=== PATIENT | female | born 1990 | race Caucasian/White ===

== ENCOUNTER 2017-03-18 18:53 | Emergency (ER) | payer OTHER ==
--- NOTE | 2017-03-18 19:59 | ED NURSING NOTES ---
Clinical Report - Nurses [facility] [address] [place] [address] 03/18/2017 18:54 [id number] Triage time 19:Mar 18 2017. Acuity: LEVEL 3. Chief Complaint: RIGHT LOWER EXTREMITY PAIN, SWELLING and REDNESS. 19:28 03/18/17. SEPSIS SCREEN: Sepsis Screen: negative. Infection suspected/documented. Heart rate greater than 90. TEE COMA SCORE: Tee Coma Scale: 15- eyes open spontaneously (4); best verbal response- oriented x 4 (5); best motor response- obeys commands (6). --19:28 Raya Landers 19:22 03/18/17. BP: 110/70. HR: 114. RR: 20. O2 saturation: 98% on room air. Temp: 99 F (oral). Pain level now: 05/12. --19:28 Raya Landers. Weight: 68 kg stated. Height/Length: 66 inches Per Patient. BMI: 24.2. --19:25 Raya Landers. Medications None. --19:24 Raya Landers. Medication/allergy information source: the patient. --19:28 Raya Landers. Allergies No Known Drug Allergy. --19:24 Raya Landers. History Arrived by private vehicle. Historian: patient. Accompanied by family. Primary physician (none). No injury occurred. This occurred yesterday. It is described as radiating to the right lower extremity and thigh. ( Patient reports bursitis in her right knee. She states her clinic was unable to drain it today. She received medication but is still in pain and reports worsening symptoms. She states to her knowledge the infection is in her "knee bones". She reports she had been given antibiotics and pain meds one month ago and is now not taking them.). PAST MEDICAL HX: Tetanus status: up-to-date. Immunizations: up-to-date. Last normal menstrual period now. SOCIAL HX: Never smoker. No alcohol use or drug use. No infectious disease exposure. ABUSE ASSESSMENT: No report of abuse. FALL RISK ASSESSMENT: Fall risk assessment completed. No fall risk identified. NUTRITIONAL RISK ASSESSMENT: The nutritional risk assessment revealed no deficiencies. FUNCTIONAL ASSESSMENT: Functional assessment: no impairments noted. LEARNING NEEDS ASSESSMENT: The learning needs assessment revealed no barriers. SKIN INTEGRITY ASSESSMENT: Skin integrity risk assessment completed. No skin integrity risk identified. --19:28 Raya Landers. PROBLEMS: Bursitis. --19:24 Raya Landers. ADDITIONAL SURGERIES: no known surgeries. Interventions ID band on patient. To treatment room. --19:28 Raya Landers. PHYSICAL ASSESSMENT Ambulatory to room. GENERAL / NEURO / PSYCH: Oriented X 4. Alert. Appears in no acute distress. EXTREMITIES: Extremity pulses are within normal limits. Right knee: tenderness, swelling and erythema. Limited ROM secondary to. SKIN: Skin is warm and dry. --19:35 Raya Landers. NURSING PROGRESS NOTES GENERAL / NEURO / PSYCH: Alert. Oriented X 4. RESPIRATORY: No respiratory distress. SKIN: Skin is warm and dry. ( Patient returned to waiting room, Patient stable at this time and informed of plan of care). --19:29 Raya Landers 19:38 03/18/17. Extremity elevated. Reassurance given. Two patient identifiers checked. Call light placed in reach. Side rails up x 1. Bed placed in lowest position. Brakes of bed on. Patient ready for evaluation- chart flagged and ED physician notified. --19:38 Raya Landers. DISPOSITION / DISCHARGE 20:10 03/18/17. Condition at departure: stable. The goals identified in the patient's plan of care were met. No learning barriers present. Discharge instructions provided and reviewed with the patient. Reviewed warnings (Do not drive while on sedative medications). Reviewed medication(s) side effects, precautions, dosing and course information. Prescription(s) given to the patient. Reviewed need for increased fluid intake. Patient and watch repair person verbalized understanding. Written instructions provided in [place] and [place]ian. ( Follow up with Orthopedic clinic in three days, contact information provided. Apply ice for twenty minutes at a time. Rest the join, elevate and reduce stress to the affected knee until better. Patient verbalize understanding and had no additional questions at this time.). The patient was discharged by the nurse practitioner. She was discharged home and accompanied by watch repair person. She left the Emergency Department ambulatory and via private vehicle. Iron Molder Helper driving. FALL RISK ASSESSMENT: Fall risk assessment completed. No fall risk identified. --00:59 Raya Landers 20:10 03/18/17. BP: 112/60. HR: 80. RR: 20. O2 saturation: 98% on room air. Pain level now: 05/12. --00:59 Raya Landers. Locked/Released at 03/19/2017 1:12 by Raya Landers,
--- NOTE | 2017-03-18 19:59 | ED CLINICAL REPORT ---
Clinical Report - Physicians/Mid Levels [facility] [address] [place] [address] 03/18/2017 18:54 Patient: JORY SMITH Time Seen: 19:45; initial patient contact, initial documentation, patient care assumed. Arrived- By private vehicle. Historian- patient. HISTORY OF PRESENT ILLNESS Chief Complaint: LOWER EXTREMITY PAIN and SWELLING. Severity is described as being severe. The quality is noted to be "pain". No radiation. Not relieved by anything- worsened by standing and walking. This started about 2 days ago and is still present and worsening. It was abrupt in onset and has been intermittent. Symptoms located in the area of the right knee. The patient has had mild redness. She has had new onset of localized moderate swelling of the right knee. No difficulty walking. No bladder dysfunction, bowel dysfunction, sensory loss or motor loss. Patient denies an injury. Similar symptoms previously: Once. ( started about 1 month ago, was redder and purple in color last time and swelling just as bad, but it came on much slower, was given abx and pain meds, also given a wrap but didn't wear it or use it). Recent medical care: The patient was seen recently in a clinic. ( went to clinic today, dx with knee bursitis, they refused to drain it, so came here). REVIEW OF SYSTEMS No chest pain, difficulty breathing or fever. All systems otherwise negative, except as recorded above. PAST HISTORY See nurses notes. ( PROBLEMS: Bursitis. --19:24 Raya Landers. ADDITIONAL SURGERIES: no known surgeries.). SOCIAL HISTORY Never smoker. No alcohol use or drug use. No recent travel. Is a local resident. FAMILY HISTORY Negative. ADDITIONAL NOTES The nursing notes have been reviewed with agreement regarding the chief complaint, HPI, ROS, PMH and patient medications and allergies. PHYSICAL EXAM Vital Signs: 03/18/2017 19:22 BP: 110/70. HR: 114. RR: 20. O2 saturation: 98%. Temp: 99 F. Pain level now: 8/10. Have been reviewed as abnormal and appear to be correct. Blood pressure normal. Tachycardic. Respiratory rate normal. Temperature normal. Oxygen saturation normal. Appearance: Alert. Oriented X3. No acute distress. Eyes: Pupils equal, round and reactive to light. Eyes normal inspection. Respiratory: No respiratory distress. Skin: Skin intact. Skin warm and dry. Normal skin color. Normal skin turgor. Extremities: Right knee: mild erythema and swelling and moderate tenderness located in the patella. Limited ROM secondary to pain (diminished flexion). Neurovascular intact distally. (warmth). No ligamentous laxity present. No joint effusion. No laceration, abrasion, ecchymosis, puncture wound or foreign body. No deformity. Lower extremities exhibit normal ROM. Lower extremity edema present. Extremities otherwise negative. Gait: Abnormal gait. Neuro: Oriented X 3. No motor deficit. No sensory deficit. PROGRESS AND PROCEDURES Course of Care: tx options discussing with doing knee arthrocentesis, explained to pt risk of draining it and septic knee, not comfortable draining it due to all the inflammation and possible infection, explained to pt that is probably why clinic didn't drain it either. Patient counseled in person regarding the patient's stable condition and diagnosis. Differential Diagnosis: Other possible considerations: septic joint, bursitis, cellulitis, fb, mrsa, abscess, knee effusion. Above considerations are based on history and physical exam. Differential diagnosis was discussed with patient. Disposition: Discharged home in good and unchanged condition (19:58). Condition: good and stable. CLINICAL IMPRESSION Right prepatellar bursitis with infection. INSTRUCTIONS Warnings: GENERAL WARNINGS: Return or contact your physician immediately if your condition worsens or changes unexpectedly, if not improving as expected, or if other problems arise. Specifically return if problem worsens. Prescription Medications: Cephalexin 500 mg: take 1 capsule orally every 6 hours for 10 days. No refill. Sherwood 5 mg / 325 mg tablets: take 1 orally every 6 hours as needed for pain. Dispense ten (10). No refill. Motrin 800 mg tablets: take 1 tablet orally every 8 hours as needed for pain. Dispense thirty (30). No refills. Substitution is permissible. Follow-up: Follow up with your doctor in about three days even if well. Call for an appointment. Summary of care provided to patient. Understanding of the discharge instructions verbalized by patient. Follow-up with: [facility], , [address], , [place], [address]; Lobo Antonio M.D., Ortho, , [address], , [place], [address]; Edward Mao M.D., Ortho, , [address], , [place], [address]; Samm Tate MD, Orthopedic Surgeon, , [address], , [place], [address]; Nader Morris MD, Orthopedic Surgeon, , [address] , [place], [address] Follow up in about three days as needed. Call for an appointment. Summary of care provided to patient. (Electronically signed by Nini Borjas A.R.N.P. 03/18/2017 22:00)
--- NOTE | 2017-03-18 19:59 | ED NURSING NOTES ---
Clinical Report - Nurses [facility] [address] [place] [address] 03/18/2017 18:54 [id number] TRI[facility] Triage time 19:Mar 18 2017. Acuity: LEVEL 3. Chief Complaint: RIGHT LOWER EXTREMITY PAIN, SWELLING and REDNESS. 19:28 03/18/17. SEPSIS SCREEN: Sepsis Screen: negative. Infection suspected/documented. Heart rate greater than 90. TEE COMA SCORE: Tee Coma Scale: 15- eyes open spontaneously (4); best verbal response- oriented x 4 (5); best motor response- obeys commands (6). --19:28 Raya Landers 19:22 03/18/17. BP: 110/70. HR: 114. RR: 20. O2 saturation: 98% on room air. Temp: 99 F (oral). Pain level now: 05/12. --19:28 Raya Landers. Weight: 68 kg stated. Height/Length: 66 inches Per Patient. BMI: 24.2. --19:25 Raya Landers. Medications None. --19:24 Raya Landers. Medication/allergy information source: the patient. --19:28 Raya Landers. Allergies No Known Drug Allergy. --19:24 Raya Landers. History Arrived by private vehicle. Historian: patient. Accompanied by family. Primary physician (none). No injury occurred. This occurred yesterday. It is described as radiating to the right lower extremity and thigh. ( Patient reports bursitis in her right knee. She states her clinic was unable to drain it today. She received medication but is still in pain and reports worsening symptoms. She states to her knowledge the infection is in her "knee bones". She reports she had been given antibiotics and pain meds one month ago and is now not taking them.). PAST MEDICAL HX: Tetanus status: up-to-date. Immunizations: up-to-date. Last normal menstrual period now. SOCIAL HX: Never smoker. No alcohol use or drug use. No infectious disease exposure. ABUSE ASSESSMENT: No report of abuse. FALL RISK ASSESSMENT: Fall risk assessment completed. No fall risk identified. NUTRITIONAL RISK ASSESSMENT: The nutritional risk assessment revealed no deficiencies. FUNCTIONAL ASSESSMENT: Functional assessment: no impairments noted. LEARNING NEEDS ASSESSMENT: The learning needs assessment revealed no barriers. SKIN INTEGRITY ASSESSMENT: Skin integrity risk assessment completed. No skin integrity risk identified. --19:28 Raya Landers. PROBLEMS: Bursitis. --19:24 Raya Landers. ADDITIONAL SURGERIES: no known surgeries. Interventions ID band on patient. To treatment room. --19:28 Raya Landers. PHYSICAL ASSESSMENT Ambulatory to room. GENERAL / NEURO / PSYCH: Oriented X 4. Alert. Appears in no acute distress. EXTREMITIES: Extremity pulses are within normal limits. Right knee: tenderness, swelling and erythema. Limited ROM secondary to. SKIN: Skin is warm and dry. --19:35 Raya Landers. NURSING PROGRESS NOTES GENERAL / NEURO / PSYCH: Alert. Oriented X 4. RESPIRATORY: No respiratory distress. SKIN: Skin is warm and dry. ( Patient returned to waiting room, Patient stable at this time and informed of plan of care). --19:29 Raya Landers 19:38 03/18/17. Extremity elevated. Reassurance given. Two patient identifiers checked. Call light placed in reach. Side rails up x 1. Bed placed in lowest position. Brakes of bed on. Patient ready for evaluation- chart flagged and ED physician notified. --19:38 Raya Landers. DISPOSITION / DISCHARGE 20:10 03/18/17. Condition at departure: stable. The goals identified in the patient's plan of care were met. No learning barriers present. Discharge instructions provided and reviewed with the patient. Reviewed warnings (Do not drive while on sedative medications). Reviewed medication(s) side effects, precautions, dosing and course information. Prescription(s) given to the patient. Reviewed need for increased fluid intake. Patient and marketing project manager verbalized understanding. Written instructions provided in [place] and Belgian. ( Follow up with Orthopedic clinic in three days, contact information provided. Apply ice for twenty minutes at a time. Rest the join, elevate and reduce stress to the affected knee until better. Patient verbalize understanding and had no additional questions at this time.). The patient was discharged by the nurse practitioner. She was discharged home and accompanied by marketing project manager. She left the Emergency Department ambulatory and via private vehicle. Rag Cutting Machine Operator driving. FALL RISK ASSESSMENT: Fall risk assessment completed. No fall risk identified. --00:59 Raya Landers 20:10 03/18/17. BP: 112/60. HR: 80. RR: 20. O2 saturation: 98% on room air. Pain level now: 05/12. --00:59 Raya Landers. Locked/Released at 03/19/2017 1:12 by Raya Landers,
--- NOTE | 2017-03-18 19:59 | ED CLINICAL REPORT ---
Clinical Report - Physicians/Mid Levels [facility] [address] [place] [address] 03/18/2017 18:54 Patient: JORY SMITH Time Seen: 19:45; initial patient contact, initial documentation, patient care assumed. Arrived- By private vehicle. Historian- patient. HISTORY OF PRESENT ILLNESS Chief Complaint: LOWER EXTREMITY PAIN and SWELLING. Severity is described as being severe. The quality is noted to be "pain". No radiation. Not relieved by anything- worsened by standing and walking. This started about 2 days ago and is still present and worsening. It was abrupt in onset and has been intermittent. Symptoms located in the area of the right knee. The patient has had mild redness. She has had new onset of localized moderate swelling of the right knee. No difficulty walking. No bladder dysfunction, bowel dysfunction, sensory loss or motor loss. Patient denies an injury. Similar symptoms previously: Once. ( started about 1 month ago, was redder and purple in color last time and swelling just as bad, but it came on much slower, was given abx and pain meds, also given a wrap but didn't wear it or use it). Recent medical care: The patient was seen recently in a clinic. ( went to clinic today, dx with knee bursitis, they refused to drain it, so came here). REVIEW OF SYSTEMS No chest pain, difficulty breathing or fever. All systems otherwise negative, except as recorded above. PAST HISTORY See nurses notes. ( PROBLEMS: Bursitis. --19:24 Raya Landers. ADDITIONAL SURGERIES: no known surgeries.). SOCIAL HISTORY Never smoker. No alcohol use or drug use. No recent travel. Is a local resident. FAMILY HISTORY Negative. ADDITIONAL NOTES The nursing notes have been reviewed with agreement regarding the chief complaint, HPI, ROS, PMH and patient medications and allergies. PHYSICAL EXAM Vital Signs: 03/18/2017 19:22 BP: 110/70. HR: 114. RR: 20. O2 saturation: 98%. Temp: 99 F. Pain level now: 8/10. Have been reviewed as abnormal and appear to be correct. Blood pressure normal. Tachycardic. Respiratory rate normal. Temperature normal. Oxygen saturation normal. Appearance: Alert. Oriented X3. No acute distress. Eyes: Pupils equal, round and reactive to light. Eyes normal inspection. Respiratory: No respiratory distress. Skin: Skin intact. Skin warm and dry. Normal skin color. Normal skin turgor. Extremities: Right knee: mild erythema and swelling and moderate tenderness located in the patella. Limited ROM secondary to pain (diminished flexion). Neurovascular intact distally. (warmth). No ligamentous laxity present. No joint effusion. No laceration, abrasion, ecchymosis, puncture wound or foreign body. No deformity. Lower extremities exhibit normal ROM. Lower extremity edema present. Extremities otherwise negative. Gait: Abnormal gait. Neuro: Oriented X 3. No motor deficit. No sensory deficit. PROGRESS AND PROCEDURES Course of Care: tx options discussing with doing knee arthrocentesis, explained to pt risk of draining it and septic knee, not comfortable draining it due to all the inflammation and possible infection, explained to pt that is probably why clinic didn't drain it either. Patient counseled in person regarding the patient's stable condition and diagnosis. Differential Diagnosis: Other possible considerations: septic joint, bursitis, cellulitis, fb, mrsa, abscess, knee effusion. Above considerations are based on history and physical exam. Differential diagnosis was discussed with patient. Disposition: Discharged home in good and unchanged condition (19:58). Condition: good and stable. CLINICAL IMPRESSION Right prepatellar bursitis with infection. INSTRUCTIONS Warnings: GENERAL WARNINGS: Return or contact your physician immediately if your condition worsens or changes unexpectedly, if not improving as expected, or if other problems arise. Specifically return if problem worsens. Prescription Medications: Cephalexin 500 mg: take 1 capsule orally every 6 hours for 10 days. No refill. Stover 5 mg / 325 mg tablets: take 1 orally every 6 hours as needed for pain. Dispense ten (10). No refill. Motrin 800 mg tablets: take 1 tablet orally every 8 hours as needed for pain. Dispense thirty (30). No refills. Substitution is permissible. Follow-up: Follow up with your doctor in about three days even if well. Call for an appointment. Summary of care provided to patient. Understanding of the discharge instructions verbalized by patient. Follow-up with: [facility], , [address], , [place], [address]; Lobo Antonio M.D., [facility], , [address], , [place], [address]; Edward Mao M.D., Ortho, , [address], , [place], [address]; Samm Tate MD, Orthopedic Surgeon, , [address], , [place], [address]; Nader Morris MD, Orthopedic Surgeon, , [address] , [place], [address] Follow up in about three days as needed. Call for an appointment. Summary of care provided to patient. (Electronically signed by Nini Borajs A.R.N.P. 03/18/2017 22:00)
--- NOTE | 2017-03-19 01:13 | ED DISCHARGE INSTRUCTIONS ---
Patient: JORY SMITH General Instructions [facility] VisitID: [id number] [address], [place] [address] 26y, F Registration Date/Time: 03/18/2017 Right prepatellar bursitis with infection. INSTRUCTIONS Warnings: GENERAL WARNINGS: Return or contact your physician immediately if your condition worsens or changes unexpectedly, if not improving as expected, or if other problems arise. Specifically return if problem worsens. Prescription Medications: Cephalexin 500 mg: take 1 capsule orally every 6 hours for 10 days. No refill. [place] 5 mg / 325 mg tablets: take 1 orally every 6 hours as needed for pain. Dispense ten (10). No refill. Motrin 800 mg tablets: take 1 tablet orally every 8 hours as needed for pain. Dispense thirty (30). No refills. Substitution is permissible. Follow-up: Follow up with your doctor in about three days even if well. Call for an appointment. Summary of care provided to patient. Understanding of the discharge instructions verbalized by patient. Follow-up with: [facility], , [address], , [place] [id number]; Lobo Antonio M.D., Ortho, , [address], , [place] [id number]; Edward Mao M.D., Ortho, , [address] , [place] [id number]; Samm Tate MD, Orthopedic Surgeon, , [id number], , [place], [address]; Nader Morris MD, Orthopedic Surgeon, , [address] [place] [address] Follow up in about three days as needed. Call for an appointment. Summary of care provided to patient. ADDITIONAL INFORMATION Bursitis The larger joints of the body are surrounded bybursa. These are small, flat fluid-filled sacs which help the gliding motion of the muscles and tendons over the joints. Bursitis is an inflammation of the bursa due to injury, overuse of the joint, or infection of the bursa itself. Symptoms include pain and tenderness over a joint that is made worse with movement. Bursitis is treated with an anti-inflammatory medicine and by resting the joint. More severe cases require injection of medicine directly into the bursa. Home Care: Apply an ice pack (ice cubes in a plastic bag, wrapped in a towel) over the injured area for 20 minutes every 1-2 hours the first day. Continue this 3-4 times a day until the pain and swelling improves. Rest the painful joint and protect it from movement. This will allow the inflammation to heal faster. You may take ibuprofen (Motrin, Advil) or naproxen (Aleve, Naprosyn) to treat pain and inflammation, unless another medicine was prescribed. If you can't take these medicines, acetaminophen (Tylenol) may help with the pain, but does not treat inflammation. [NOTE: If you have chronic liver or kidney disease or ever had a stomach ulcer or GI bleeding, talk with your doctor before using these medicines.] As your symptoms improve, begin gradual motion at the joint. Do not overuse the joint, which may cause the symptoms to flare up again. Follow Up With Your Doctor If Not Improving After Three Days Of Treatment. Get Prompt Medical Attention If Any Of The Following Occur: Redness over the painful area Increasing pain or swelling at the joint Fever of 100.4F (38C) or higher, or as directed by your healthcare provider Cephalexin Monohydrate Oral tablet What is this medicine? CEPHALEXIN (sef a LAYLA in) is a cephalosporin antibiotic. It is used to treat certain kinds of bacterial infections It will not work for colds, flu, or other viral infections. How should I use this medicine? Take this medicine by mouth with a full glass of water. Follow the directions on the prescription label. This medicine can be taken with or without food. Take your medicine at regular intervals. Do not take your medicine more often than directed. Take all of your medicine as directed even if you think you are better. Do not skip doses or stop your medicine early. Talk to your road equipment operator regarding the use of this medicine in children. While this drug may be prescribed for selected conditions, precautions do apply. What side effects may I notice from receiving this medicine? Side effects that you should report to your doctor or health physician locums urgent care as soon as possible: allergic reactions like skin rash, itching or hives, swelling of the face, lips, or tongue breathing problems pain or trouble passing urine redness, blistering, peeling or loosening of the skin, including inside the mouth severe or watery diarrhea unusually weak or tired yellowing of the eyes, skin Side effects that usually do not require medical attention (report to your doctor or health physician locums urgent care if they continue or are bothersome): gas or heartburn genital or anal irritation headache joint or muscle pain nausea, vomiting What may interact with this medicine? probenecid some other antibiotics What if I miss a dose? If you miss a dose, take it as soon as you can. If it is almost time for your next dose, take only that dose. Do not take double or extra doses. There should be at least 4 to 6 hours between doses. Where should I keep my medicine? Keep out of the reach of children. Store at room temperature between 59 and 86 degrees F (15 and 30 degrees C). Throw away any unused medicine after the expiration date. What should I tell my health care provider before I take this medicine? They need to know if you have any of these conditions: kidney disease stomach or intestine problems, especially colitis an unusual or allergic reaction to cephalexin, other cephalosporins, penicillins, other antibiotics, medicines, foods, dyes or preservatives or trying to get breast-feeding What should I watch for while using this medicine? Tell your doctor or health physician locums urgent care if your symptoms do not begin to improve in a few days. Do not treat diarrhea with over the counter products. Contact your doctor if you have diarrhea that lasts more than 2 days or if it is severe and watery. If you have diabetes, you may get a false-positive result for sugar in your urine. Check with your doctor or health physician locums urgent care. Hydrocodone Bitartrate, Acetaminophen Oral tablet What is this medicine? ACETAMINOPHEN; HYDROCODONE (a set a PAOLO louise fen; ladan droe KOE done) is a pain reliever. It is used to treat mild to moderate pain. How should I use this medicine? Take this medicine by mouth. Swallow it with a full glass of water. Follow the directions on the prescription label. If the medicine upsets your stomach, take the medicine with food or milk. Do not take more than you are told to take. Talk to your road equipment operator regarding the use of this medicine in children. This medicine is not approved for use in children. What side effects may I notice from receiving this medicine? Side effects that you should report to your doctor or health physician locums urgent care as soon as possible: allergic reactions like skin rash, itching or hives, swelling of the face, lips, or tongue breathing problems confusion feeling faint or lightheaded, falls stomach pain yellowing of the eyes or skin Side effects that usually do not require medical attention (report to your doctor or health physician locums urgent care if they continue or are bothersome): nausea, vomiting stomach upset What may interact with this medicine? alcohol antihistamines isoniazid medicines for depression, anxiety, or psychotic disturbances medicines for sleep muscle relaxants naltrexone narcotic medicines (opiates) for pain phenobarbital ritonavir tramadol What if I miss a dose? If you miss a dose, take it as soon as you can. If it is almost time for your next dose, take only that dose. Do not take double or extra doses. Where should I keep my medicine? Keep out of the reach of children. This medicine can be abused. Keep your medicine in a safe place to protect it from theft. Do not share this medicine with anyone. Selling or giving away this medicine is dangerous and against the law. Store at room temperature between 15 and 30 degrees C (59 and 86 degrees F). Protect from light. Keep container tightly closed. Throw away any unused medicine after the expiration date. Discard unused medicine and used packaging carefully. Pets and children can be harmed if they find used or lost packages. What should I tell my health care provider before I take this medicine? They need to know if you have any of these conditions: brain tumor Crohn's disease, inflammatory bowel disease, or ulcerative colitis drink more than 3 alcohol-containing drinks per day drug abuse or addiction head injury heart or circulation problems kidney disease or problems going to the bathroom liver disease lung disease, asthma, or breathing problems an unusual or allergic reaction to acetaminophen, hydrocodone, other opioid analgesics, other medicines, foods, dyes, or preservatives or trying to get breast-feeding What should I watch for while using this medicine? Tell your doctor or health physician locums urgent care if your pain does not go away, if it gets worse, or if you have new or a different type of pain. You may develop tolerance to the medicine. Tolerance means that you will need a higher dose of the medicine for pain relief. Tolerance is normal and is expected if you take the medicine for a long time. Do not suddenly stop taking your medicine because you may develop a severe reaction. Your body becomes used to the medicine. This does NOT mean you are addicted. Addiction is a behavior related to getting and using a drug for a non-medical reason. If you have pain, you have a medical reason to take pain medicine. Your doctor will tell you how much medicine to take. If your doctor wants you to stop the medicine, the dose will be slowly lowered over time to avoid any side effects. You may get drowsy or dizzy when you first start taking the medicine or change doses. Do not drive, use machinery, or do anything that may be dangerous until you know how the medicine affects you. Stand or sit up slowly. There are different types of narcotic medicines (opiates) for pain. If you take more than one type at the same time, you may have more side effects. Give your health care provider a list of all medicines you use. Your doctor will tell you how much medicine to take. Do not take more medicine than directed. Call emergency for help if you have problems breathing. The medicine will cause constipation. Try to have a bowel movement at least every 2 to 3 days. If you do not have a bowel movement for 3 days, call your doctor or health physician locums urgent care. Too much acetaminophen can be very dangerous. Do not take Tylenol (acetaminophen) or medicines that contain acetaminophen with this medicine. Many non-prescription medicines contain acetaminophen. Always read the labels carefully. Ibuprofen Oral tablet What is this medicine? IBUPROFEN (eye BYOO proe fen) is a non-steroidal anti-inflammatory drug (NSAID). It is used for dental pain, fever, headaches or migraines, osteoarthritis, rheumatoid arthritis, or painful monthly periods. It can also relieve minor aches and pains caused by a cold, flu, or sore throat. How should I use this medicine? Take this medicine by mouth with a glass of water. Follow the directions on the prescription label. Take this medicine with food if your stomach gets upset. Try to not lie down for at least 10 minutes after you take the medicine. Take your medicine at regular intervals. Do not take your medicine more often than directed. A special MedGuide will be given to you by the pharmacist with each prescription and refill. Be sure to read this information carefully each time. Talk to your road equipment operator regarding the use of this medicine in children. Special care may be needed. What side effects may I notice from receiving this medicine? Side effects that you should report to your doctor or health physician locums urgent care as soon as possible: allergic reactions like skin rash, itching or hives, swelling of the face, lips, or tongue black or bloody stools, blood in the urine or in vomit breathing problems changes in vision chest pain general ill feeling or flu-like symptoms nausea or vomiting redness, blistering, peeling or loosening of the skin, including inside the mouth slurred speech or weakness on one side of the body stomach pain unexplained weight gain or swelling unusually weak or tired yellowing of eyes or skin Side effects that usually do not require medical attention (report to your doctor or health physician locums urgent care if they continue or are bothersome): constipation or diarrhea dizziness gas or heartburn stomach upset What may interact with this medicine? Do not take this medicine with any of the following medications: cidofovir ketorolac methotrexate pemetrexed This medicine may also interact with the following medications: alcohol aspirin diuretics lithium other drugs for inflammation like prednisone warfarin What if I miss a dose? If you miss a dose, take it as soon as you can. If it is almost time for your next dose, take only that dose. Do not take double or extra doses. Where should I keep my medicine? Keep out of the reach of children. Store at room temperature between 15 and 30 degrees C (59 and 86 degrees F). Keep container tightly closed. Throw away any unused medicine after the expiration date. What should I tell my health care provider before I take this medicine? They need to know if you have any of these conditions: asthma cigarette smoker drink more than 3 alcohol containing drinks a day heart disease or circulation problems such as heart failure or leg edema (fluid retention) high blood pressure kidney disease liver disease stomach bleeding or ulcers an unusual or allergic reaction to ibuprofen, aspirin, other NSAIDS, other medicines, foods, dyes, or preservatives or trying to get breast-feeding What should I watch for while using this medicine? Tell your doctor or healthcare professional if your symptoms do not start to get better or if they get worse. This medicine does not prevent heart attack or stroke. In fact, this medicine may increase the chance of a heart attack or stroke. The chance may increase with longer use of this medicine and in people who have heart disease. If you take aspirin to prevent heart attack or stroke, talk with your doctor or health physician locums urgent care. Do not take other medicines that contain aspirin, ibuprofen, or naproxen with this medicine. Side effects such as stomach upset, nausea, or ulcers may be more likely to occur. Many medicines available without a prescription should not be taken with this medicine. This medicine can cause ulcers and bleeding in the stomach and intestines at any time during treatment. Ulcers and bleeding can happen without warning symptoms and can cause . To reduce your risk, do not smoke cigarettes or drink alcohol while you are taking this medicine. You may get drowsy or dizzy. Do not drive, use machinery, or do anything that needs mental alertness until you know how this medicine affects you. Do not stand or sit up quickly, especially if you are an older patient. This reduces the risk of dizzy or fainting spells. This medicine can cause you to bleed more easily. Try to avoid damage to your teeth and gums when you brush or floss your teeth. You have been given the following additional information: Bursitis Cephalexin Monohydrate Oral tablet Hydrocodone Bitartrate, Acetaminophen Oral tablet Ibuprofen Oral tablet (Electronically signed by Nini Borjas A.R.N.P. 03/18/2017 22:00)
--- NOTE | 2017-03-19 01:13 | ED MED RECONCILIATION SUMMARY ---
Patient: JORY SMITH Medication Reconciliation Report [facility] VisitID: [id number] [address] [place] [address] 26y, F Registration Date/Time: 03/18/2017 Weight: 68.0 kg Height/Length: 66 in. BMI: 24.2 ALLERGIES: No Known Drug Allergy The patient's Home Medications are listed below: NONE. The source(s) of the original Home Medication information: patient The following Medications were given to the patient in the Emergency Department: None. The following Medications were prescribed to the patient: Cephalexin 500 mg: take 1 capsule orally every 6 hours for 10 days. No refill. -- Nini Borjas A.R.N.P. [place] 5 mg / 325 mg tablets: take 1 orally every 6 hours as needed for pain. Dispense ten (10). No refill. -- Nini Borjas A.R.N.P. Motrin 800 mg tablets: take 1 tablet orally every 8 hours as needed for pain. Dispense thirty (30). No refills. Substitution is permissible. -- Nini Borjas A.R.N.P.
--- NOTE | 2017-03-19 01:13 | ED MAR SUMMARY ---
..... Medication Administration Record [facility] [address], [place] [id number] Patient: JORY SMITH Visit ID: [id number] 26y, F Weight: 68.0 kg Height/Length: 66 in BMI: 24.2 ALLERGIES: No Known Drug Allergy
--- NOTE | 2017-03-19 01:13 | ED DISCHARGE INSTRUCTIONS ---
Patient: JORY SMITH General Instructions [facility] VisitID: [id number] [address], [place] [address] 26y, F Registration Date/Time: 03/18/2017 Right prepatellar bursitis with infection. INSTRUCTIONS Warnings: GENERAL WARNINGS: Return or contact your physician immediately if your condition worsens or changes unexpectedly, if not improving as expected, or if other problems arise. Specifically return if problem worsens. Prescription Medications: Cephalexin 500 mg: take 1 capsule orally every 6 hours for 10 days. No refill. [place] 5 mg / 325 mg tablets: take 1 orally every 6 hours as needed for pain. Dispense ten (10). No refill. Motrin 800 mg tablets: take 1 tablet orally every 8 hours as needed for pain. Dispense thirty (30). No refills. Substitution is permissible. Follow-up: Follow up with your doctor in about three days even if well. Call for an appointment. Summary of care provided to patient. Understanding of the discharge instructions verbalized by patient. Follow-up with: [facility], [facility], , [address], , [place] [address]; Lobo Antonio M.D., Ortho, , [address], , [place] [id number]; Edward Mao M.D., Ortho, , [address] , [place] [id number]; Samm Tate MD, Orthopedic Surgeon, , [address], , [place], [address]; Nader Morris MD, Orthopedic Surgeon, , [address] [place] [address] Follow up in about three days as needed. Call for an appointment. Summary of care provided to patient. ADDITIONAL INFORMATION Bursitis The larger joints of the body are surrounded bybursa. These are small, flat fluid-filled sacs which help the gliding motion of the muscles and tendons over the joints. Bursitis is an inflammation of the bursa due to injury, overuse of the joint, or infection of the bursa itself. Symptoms include pain and tenderness over a joint that is made worse with movement. Bursitis is treated with an anti-inflammatory medicine and by resting the joint. More severe cases require injection of medicine directly into the bursa. Home Care: Apply an ice pack (ice cubes in a plastic bag, wrapped in a towel) over the injured area for 20 minutes every 1-2 hours the first day. Continue this 3-4 times a day until the pain and swelling improves. Rest the painful joint and protect it from movement. This will allow the inflammation to heal faster. You may take ibuprofen (Motrin, Advil) or naproxen (Aleve, Naprosyn) to treat pain and inflammation, unless another medicine was prescribed. If you can't take these medicines, acetaminophen (Tylenol) may help with the pain, but does not treat inflammation. [NOTE: If you have chronic liver or kidney disease or ever had a stomach ulcer or GI bleeding, talk with your doctor before using these medicines.] As your symptoms improve, begin gradual motion at the joint. Do not overuse the joint, which may cause the symptoms to flare up again. Follow Up With Your Doctor If Not Improving After Three Days Of Treatment. Get Prompt Medical Attention If Any Of The Following Occur: Redness over the painful area Increasing pain or swelling at the joint Fever of 100.4F (38C) or higher, or as directed by your healthcare provider Cephalexin Monohydrate Oral tablet What is this medicine? CEPHALEXIN (sef a LAYLA in) is a cephalosporin antibiotic. It is used to treat certain kinds of bacterial infections It will not work for colds, flu, or other viral infections. How should I use this medicine? Take this medicine by mouth with a full glass of water. Follow the directions on the prescription label. This medicine can be taken with or without food. Take your medicine at regular intervals. Do not take your medicine more often than directed. Take all of your medicine as directed even if you think you are better. Do not skip doses or stop your medicine early. Talk to your lettuce cutter regarding the use of this medicine in children. While this drug may be prescribed for selected conditions, precautions do apply. What side effects may I notice from receiving this medicine? Side effects that you should report to your doctor or health critical care nurse practitioner as soon as possible: allergic reactions like skin rash, itching or hives, swelling of the face, lips, or tongue breathing problems pain or trouble passing urine redness, blistering, peeling or loosening of the skin, including inside the mouth severe or watery diarrhea unusually weak or tired yellowing of the eyes, skin Side effects that usually do not require medical attention (report to your doctor or health critical care nurse practitioner if they continue or are bothersome): gas or heartburn genital or anal irritation headache joint or muscle pain nausea, vomiting What may interact with this medicine? probenecid some other antibiotics What if I miss a dose? If you miss a dose, take it as soon as you can. If it is almost time for your next dose, take only that dose. Do not take double or extra doses. There should be at least 4 to 6 hours between doses. Where should I keep my medicine? Keep out of the reach of children. Store at room temperature between 59 and 86 degrees F (15 and 30 degrees C). Throw away any unused medicine after the expiration date. What should I tell my health care provider before I take this medicine? They need to know if you have any of these conditions: kidney disease stomach or intestine problems, especially colitis an unusual or allergic reaction to cephalexin, other cephalosporins, penicillins, other antibiotics, medicines, foods, dyes or preservatives or trying to get breast-feeding What should I watch for while using this medicine? Tell your doctor or health critical care nurse practitioner if your symptoms do not begin to improve in a few days. Do not treat diarrhea with over the counter products. Contact your doctor if you have diarrhea that lasts more than 2 days or if it is severe and watery. If you have diabetes, you may get a false-positive result for sugar in your urine. Check with your doctor or health critical care nurse practitioner. Hydrocodone Bitartrate, Acetaminophen Oral tablet What is this medicine? ACETAMINOPHEN; HYDROCODONE (a set a PAOLO louise fen; ladan droe KOE done) is a pain reliever. It is used to treat mild to moderate pain. How should I use this medicine? Take this medicine by mouth. Swallow it with a full glass of water. Follow the directions on the prescription label. If the medicine upsets your stomach, take the medicine with food or milk. Do not take more than you are told to take. Talk to your lettuce cutter regarding the use of this medicine in children. This medicine is not approved for use in children. What side effects may I notice from receiving this medicine? Side effects that you should report to your doctor or health critical care nurse practitioner as soon as possible: allergic reactions like skin rash, itching or hives, swelling of the face, lips, or tongue breathing problems confusion feeling faint or lightheaded, falls stomach pain yellowing of the eyes or skin Side effects that usually do not require medical attention (report to your doctor or health critical care nurse practitioner if they continue or are bothersome): nausea, vomiting stomach upset What may interact with this medicine? alcohol antihistamines isoniazid medicines for depression, anxiety, or psychotic disturbances medicines for sleep muscle relaxants naltrexone narcotic medicines (opiates) for pain phenobarbital ritonavir tramadol What if I miss a dose? If you miss a dose, take it as soon as you can. If it is almost time for your next dose, take only that dose. Do not take double or extra doses. Where should I keep my medicine? Keep out of the reach of children. This medicine can be abused. Keep your medicine in a safe place to protect it from theft. Do not share this medicine with anyone. Selling or giving away this medicine is dangerous and against the law. Store at room temperature between 15 and 30 degrees C (59 and 86 degrees F). Protect from light. Keep container tightly closed. Throw away any unused medicine after the expiration date. Discard unused medicine and used packaging carefully. Pets and children can be harmed if they find used or lost packages. What should I tell my health care provider before I take this medicine? They need to know if you have any of these conditions: brain tumor Crohn's disease, inflammatory bowel disease, or ulcerative colitis drink more than 3 alcohol-containing drinks per day drug abuse or addiction head injury heart or circulation problems kidney disease or problems going to the bathroom liver disease lung disease, asthma, or breathing problems an unusual or allergic reaction to acetaminophen, hydrocodone, other opioid analgesics, other medicines, foods, dyes, or preservatives or trying to get breast-feeding What should I watch for while using this medicine? Tell your doctor or health critical care nurse practitioner if your pain does not go away, if it gets worse, or if you have new or a different type of pain. You may develop tolerance to the medicine. Tolerance means that you will need a higher dose of the medicine for pain relief. Tolerance is normal and is expected if you take the medicine for a long time. Do not suddenly stop taking your medicine because you may develop a severe reaction. Your body becomes used to the medicine. This does NOT mean you are addicted. Addiction is a behavior related to getting and using a drug for a non-medical reason. If you have pain, you have a medical reason to take pain medicine. Your doctor will tell you how much medicine to take. If your doctor wants you to stop the medicine, the dose will be slowly lowered over time to avoid any side effects. You may get drowsy or dizzy when you first start taking the medicine or change doses. Do not drive, use machinery, or do anything that may be dangerous until you know how the medicine affects you. Stand or sit up slowly. There are different types of narcotic medicines (opiates) for pain. If you take more than one type at the same time, you may have more side effects. Give your health care provider a list of all medicines you use. Your doctor will tell you how much medicine to take. Do not take more medicine than directed. Call emergency for help if you have problems breathing. The medicine will cause constipation. Try to have a bowel movement at least every 2 to 3 days. If you do not have a bowel movement for 3 days, call your doctor or health critical care nurse practitioner. Too much acetaminophen can be very dangerous. Do not take Tylenol (acetaminophen) or medicines that contain acetaminophen with this medicine. Many non-prescription medicines contain acetaminophen. Always read the labels carefully. Ibuprofen Oral tablet What is this medicine? IBUPROFEN (eye BYOO proe fen) is a non-steroidal anti-inflammatory drug (NSAID). It is used for dental pain, fever, headaches or migraines, osteoarthritis, rheumatoid arthritis, or painful monthly periods. It can also relieve minor aches and pains caused by a cold, flu, or sore throat. How should I use this medicine? Take this medicine by mouth with a glass of water. Follow the directions on the prescription label. Take this medicine with food if your stomach gets upset. Try to not lie down for at least 10 minutes after you take the medicine. Take your medicine at regular intervals. Do not take your medicine more often than directed. A special MedGuide will be given to you by the pharmacist with each prescription and refill. Be sure to read this information carefully each time. Talk to your lettuce cutter regarding the use of this medicine in children. Special care may be needed. What side effects may I notice from receiving this medicine? Side effects that you should report to your doctor or health critical care nurse practitioner as soon as possible: allergic reactions like skin rash, itching or hives, swelling of the face, lips, or tongue black or bloody stools, blood in the urine or in vomit breathing problems changes in vision chest pain general ill feeling or flu-like symptoms nausea or vomiting redness, blistering, peeling or loosening of the skin, including inside the mouth slurred speech or weakness on one side of the body stomach pain unexplained weight gain or swelling unusually weak or tired yellowing of eyes or skin Side effects that usually do not require medical attention (report to your doctor or health critical care nurse practitioner if they continue or are bothersome): constipation or diarrhea dizziness gas or heartburn stomach upset What may interact with this medicine? Do not take this medicine with any of the following medications: cidofovir ketorolac methotrexate pemetrexed This medicine may also interact with the following medications: alcohol aspirin diuretics lithium other drugs for inflammation like prednisone warfarin What if I miss a dose? If you miss a dose, take it as soon as you can. If it is almost time for your next dose, take only that dose. Do not take double or extra doses. Where should I keep my medicine? Keep out of the reach of children. Store at room temperature between 15 and 30 degrees C (59 and 86 degrees F). Keep container tightly closed. Throw away any unused medicine after the expiration date. What should I tell my health care provider before I take this medicine? They need to know if you have any of these conditions: asthma cigarette smoker drink more than 3 alcohol containing drinks a day heart disease or circulation problems such as heart failure or leg edema (fluid retention) high blood pressure kidney disease liver disease stomach bleeding or ulcers an unusual or allergic reaction to ibuprofen, aspirin, other NSAIDS, other medicines, foods, dyes, or preservatives or trying to get breast-feeding What should I watch for while using this medicine? Tell your doctor or healthcare professional if your symptoms do not start to get better or if they get worse. This medicine does not prevent heart attack or stroke. In fact, this medicine may increase the chance of a heart attack or stroke. The chance may increase with longer use of this medicine and in people who have heart disease. If you take aspirin to prevent heart attack or stroke, talk with your doctor or health critical care nurse practitioner. Do not take other medicines that contain aspirin, ibuprofen, or naproxen with this medicine. Side effects such as stomach upset, nausea, or ulcers may be more likely to occur. Many medicines available without a prescription should not be taken with this medicine. This medicine can cause ulcers and bleeding in the stomach and intestines at any time during treatment. Ulcers and bleeding can happen without warning symptoms and can cause . To reduce your risk, do not smoke cigarettes or drink alcohol while you are taking this medicine. You may get drowsy or dizzy. Do not drive, use machinery, or do anything that needs mental alertness until you know how this medicine affects you. Do not stand or sit up quickly, especially if you are an older patient. This reduces the risk of dizzy or fainting spells. This medicine can cause you to bleed more easily. Try to avoid damage to your teeth and gums when you brush or floss your teeth. You have been given the following additional information: Bursitis Cephalexin Monohydrate Oral tablet Hydrocodone Bitartrate, Acetaminophen Oral tablet Ibuprofen Oral tablet (Electronically signed by Nini Borjas A.R.N.P. 03/18/2017 22:00)
--- NOTE | 2017-03-19 01:13 | ED MED RECONCILIATION SUMMARY ---
Patient: JORY SMITH Medication Reconciliation Report [facility] VisitID: [id number] [address] [place] [address] 26y, F Registration Date/Time: 03/18/2017 Weight: 68.0 kg Height/Length: 66 in. BMI: 24.2 ALLERGIES: No Known Drug Allergy The patient's Home Medications are listed below: NONE. The source(s) of the original Home Medication information: patient The following Medications were given to the patient in the Emergency Department: None. The following Medications were prescribed to the patient: Cephalexin 500 mg: take 1 capsule orally every 6 hours for 10 days. No refill. -- Nini Borjas A.R.N.P. [place] 5 mg / 325 mg tablets: take 1 orally every 6 hours as needed for pain. Dispense ten (10). No refill. -- Nini Borjas A.R.N.P. Motrin 800 mg tablets: take 1 tablet orally every 8 hours as needed for pain. Dispense thirty (30). No refills. Substitution is permissible. -- Nini Borjas A.R.N.P.
--- NOTE | 2017-03-19 01:13 | ED MAR SUMMARY ---
..... Medication Administration Record [facility] [address] [place], [place] [id number] Patient: JORY SMITH Visit ID: [id number] 26y, F Weight: 68.0 kg Height/Length: 66 in BMI: 24.2 ALLERGIES: No Known Drug Allergy
== END 2017-03-18 20:10 | disposition home or self-care (01) ==
LOC: ED SRH 18:53
DX: M70.41 Prepatellar bursitis, right knee (principal); M71.161 Other infective bursitis, right knee